=== PATIENT | male | born 1955 | race African-American/Black ===

== ENCOUNTER 2016-11-17 08:54 | Emergency (ER) | payer BC ==
[~2016-11-17] VITALS: Ht 188 cm; Wt 111.6 kg
[~2016-11-17 08:54] MED LIST: AMLODIPINE BESYL5 MG PO; AZULFIDINE500 M1 PO; IBUPROFEN PO; ISOSORBIDE MONO20 M1 PO; K-DUR20 ME1 PO; K-DUR20 ME2 PO; LISINOPRIL20 MG PO; METHIMAZOLE5 MG PO; NORTHYX5 MG PO; PROCARDIA XL PO; QUESTRAN POWDER4 GM PO; SULFASALAZINE500 M2 PO; TAPAZOLE5 MG PO; TOPROL XL 50 MG50 MG PO; TOPROL XL50 MG PO; XARELTO20 MG PO
[2016-11-17 10:14] LABS: BASOPHIL% 0.4 % (0-2.5); DIFF IND NO; EOSINOPHIL% 0.8 % (0.0-7.0); HEMATOCRIT 39.8 % (38.0-50.0); HEMOGLOBIN 13.2 gm/dL (13.0-16.0); LYMPHOCYTE# 2.2 X10e3 (1.0-3.5); LYMPHOCYTE% 40.4 % (17.0-45.0); MEAN CELL VOLUME 86.6 FL (83-96); MEAN CORPUSCULAR HEMOGLOBIN 28.8 PG (28-34); MEAN CORPUSCULAR HGB CONC 33.2 g/dL (30-36); MEAN PLATELET VOLUME 8.3 FL (6.5-11.5); MONOCYTE# 0.5 X10e3 (0-1.0); MONOCYTE% 9.7 % (3.0-12.0); NEUTROPHIL# 2.6 X10e3 (1.5-7.1); NEUTROPHIL% 48.7 % (40-75); PLATELET COUNT 215 X10e3 (140-420); RED CELL DISTRIBUTION WIDTH 15.1 % (11.0-15.5); WHITE BLOOD COUNT 5.4 X10e3 (4.0-10.5)
[2016-11-17 10:42] LABS: ALBUMIN SERUM 3.7 g/dL (3.5-5.0); BILIRUBIN, DIRECT 0.1 mg/dL (0.0-0.2); BILIRUBIN,INDIRECT 0.8 mg/dL (0.0-0.9); BILIRUBIN,TOTAL 0.9 mg/dL (0.2-2.0); CALCIUM SERUM 8.6 mg/dL (8.4-10.2); GLOM FILT RATE Estimated 93.7 mL/min (>60); POTASSIUM 3.5 mmol/L (3.5-5.1)
[2016-11-17 11:16] LABS: INR 1.6; PARTIAL THROMBOPLASTIN TIME 35.7 SECONDS (23.5-31.3); PROTHROMBIN TIME (PATIENT) 17.5 SECONDS (10.0-11.7)
== END 2016-11-17 11:56 | disposition home or self-care (01) ==
LOC: CED 08:54
PROVIDERS: Emergency Medicine
DX: R19.7 Diarrhea, unspecified (principal); R19.5 Other fecal abnormalities; I48.91 Unspecified atrial fibrillation; I10 Essential (primary) hypertension; Z88.8 Allergy status to other drugs, medicaments and biological substances
CPT/HCPCS: 36415; 80048; 80076; 85025; 85610; 85730; 99284